=== PATIENT | female | born 1975 | race Caucasian/White ===

== ENCOUNTER 2024-10-04 18:11 | Emergency (ER) | payer OTHER ==
[~2024-10-04] VITALS: Ht 162.6 cm; Wt 77.1 kg
[2024-10-04 18:33] VITALS: BP 149/96; PULSE 95; RESP 18; TEMP 98.7; O2SAT 96
== END 2024-10-04 18:53 | disposition left against medical advice (07) ==
LOC: EDBD 18:11 → ER 18:11
DX: R56.9 Unspecified convulsions (principal); Z53.21 Procedure and treatment not carried out due to patient leaving prior to being seen by health care provider